=== PATIENT | female | born 1980 | race Caucasian/White ===

== ENCOUNTER 2020-02-25 10:50 | Outpatient (RCR) | payer OTHER | END 2020-02-26 | LOC: OT 10:50 | PROVIDERS: ATTEND Specialist | DX: M75.42 Impingement syndrome of left shoulder (principal) ==

== ENCOUNTER 2020-03-15 14:53 | Outpatient (RCR) | payer OTHER | END 2020-03-27 | LOC: OT 14:53 | PROVIDERS: ATTEND Specialist | DX: M75.42 Impingement syndrome of left shoulder (principal) ==

== ENCOUNTER 2020-04-13 13:55 | Outpatient (RCR) | payer OTHER | END 2020-04-27 | LOC: OT 13:55 | PROVIDERS: ATTEND Specialist | DX: M75.42 Impingement syndrome of left shoulder (principal) ==

== ENCOUNTER 2020-05-25 13:59 | Outpatient (RCR) | payer OTHER | END 2020-05-28 | LOC: OT 13:59 | PROVIDERS: ATTEND Specialist | DX: M75.42 Impingement syndrome of left shoulder (principal) ==

== ENCOUNTER 2020-06-01 15:05 | Outpatient (RCR) | payer OTHER | END 2020-06-25 | LOC: OT 15:05 | PROVIDERS: ATTEND Specialist | DX: M75.42 Impingement syndrome of left shoulder (principal) ==

== ENCOUNTER 2020-07-25 14:48 | Outpatient (RCR) | payer OTHER | END 2020-07-26 | LOC: PT 14:48 | PROVIDERS: ATTEND Specialist | DX: M75.42 Impingement syndrome of left shoulder (principal) ==

== ENCOUNTER 2020-08-23 17:00 | Outpatient (RCR) | payer OTHER | END 2020-08-25 | LOC: PT 17:00 | PROVIDERS: ATTEND Specialist | DX: M19.012 Primary osteoarthritis, left shoulder (principal); M75.42 Impingement syndrome of left shoulder; M62.81 Muscle weakness (generalized); M25.512 Pain in left shoulder | CPT/HCPCS: 97139 ==